=== PATIENT | male | born 1950 | race Caucasian/White ===

== ENCOUNTER 2021-02-09 09:35 | Day surgery (SDC) | payer MEDICARE ==
[~2021-02-09] VITALS: Ht 175.3 cm; Wt 95.8 kg
[~2021-02-09 09:35] MED LIST: BISA5EC; ERGO400; IBUP600 PO; METO10; MULVITA; Vitamin C100 M1
== END 2021-02-09 09:44 | disposition home or self-care (01) ==
LOC: ORSCSDS 09:35
PROVIDERS: Internal Medicine Gastroenterology
PROC: 0DBM8ZX Excision of Descending Colon, Via Natural or Artificial Opening Endoscopic, Diagnostic (ICD-10-PCS; principal; 2021-02-09 11:00)
DX: Z12.11 Encounter for screening for malignant neoplasm of colon (principal); Z86.010 Personal history of colon polyps; D12.4 Benign neoplasm of descending colon; K57.30 Diverticulosis of large intestine without perforation or abscess without bleeding
CPT/HCPCS: 88305; J2704; J7120

== ENCOUNTER 2021-02-18 14:36 | Day surgery (SDC) | payer MEDICARE | END 2021-02-18 16:00 | disposition home or self-care (01) | LOC: ATC 14:36 | DX: U07.1 COVID-19 (principal); E78.5 Hyperlipidemia, unspecified; Z79.899 Other long term (current) drug therapy | CPT/HCPCS: 96365; Q0243 ==

== ENCOUNTER → 2023-03-08 | Outpatient (CLI) | payer MEDICARE ==
[2023-03-08 19:49] LABS: BASOPHILS ABSOLUTE AUTO 0.07 K/mm3 (0.00-0.23); BASOPHILS PERCENT AUTO 1 % (0-2); EOSINOPHILS ABSOLUTE AUTO 0.15 K/mm3 (0.00-0.68); EOSINOPHILS PERCENT AUTO 2 % (0-6); Hematocrit 43.8 % (37.0-53.0); Hemoglobin 14.7 g/dL (13.5-17.5); IMMATURE GRAN ABSOLUTE AUTO 0.01 K/mm3 (0.00-0.10); IMMATURE GRAN PERCENT AUTO 0 % (0-1); LYMPHOCYTES ABSOLUTE AUTO 2.38 K/mm3 (0.84-5.20); LYMPHOCYTES PERCENT AUTO 36 % (21-46); MONOCYTES ABSOLUTE AUTO 0.49 K/mm3 (0.16-1.47); MONOCYTES PERCENT AUTO 7 % (4-13); Mean Corpuscular HGB 29.2 pg (26.0-34.0); Mean Corpuscular HGB Conc 33.6 g/dL (31.5-36.5); Mean Corpuscular Volume 87 fL (80-100); NEUTROPHILS ABSOLUTE AUTO 3.56 K/mm3 (1.96-9.15); NEUTROPHILS PERCENT AUTO 53 % (41-73); Platelet Count 265 K/mm3 (150-400); RDW Coefficient Variation 12.9 % (11.7-14.2); RDW Standard Deviation 40.9 fL (35.1-46.3); Red Blood Cell Count 5.04 M/mm3 (4.30-5.90); White Blood Cell Count 6.66 K/mm3 (4.00-11.30)
[2023-03-08 22:21] LABS: Alanine Aminotransfer (ALT/SGP 40 U/L (12-78); Albumin, Blood 4.2 g/dL (3.4-5.0); Albumin/Globulin Ratio 1.2 (0.8-1.8); Alk Phos 90 U/L (50-136); Anion Gap 5 mmol/L (6-16); Aspartate Aminotrans (AST/SGOT 32 U/L (12-37); Blood Urea Nitrogen 15 mg/dL (8-24); Bun/Creatinine Ratio 16.6 (12.0-20.0); CHOL/HDL RATIO 5.1; CO2, Blood 27 mmol/L (21-32); Calcium, Blood 9.3 mg/dL (8.5-10.1); Chloride, Blood 105 mmol/L (98-108); Cholesterol 226 mg/dL (50-200); Globulin, Blood 3.5 g/dL (2.2-4.0); Glomerular Filtration Rate 91 (60-); Glucose, Blood 84 mg/dL (70-99); HDL Cholesterol 44 mg/dL (>39); LDL/HDL RATIO 3.6; Low Density Lipoprotein Chol 159 mg/dL (0-110); Potassium, Blood 4.1 mmol/L (3.5-5.5); Sodium, Blood 137 mmol/L (136-145); Total Protein, Blood 7.7 g/dL (6.4-8.2); Triglycerides 116 mg/dL (30-160); Very Low Density Lipoprot Chol 23 mg/dL (6-32)
== END ==
LOC: LAB 17:08 → LAB SHORT 17:08
PROVIDERS: Family Medicine
DX: Z00.01 Encounter for general adult medical examination with abnormal findings (principal); E78.49 Other hyperlipidemia; N42.9 Disorder of prostate, unspecified; R53.83 Other fatigue; R73.01 Impaired fasting glucose
CPT/HCPCS: 80053; 80061; 83036; 84153; 84403; 84443; 85025